=== PATIENT | male | born 1990 | race Caucasian/White ===

== ENCOUNTER 2016-09-15 12:14 | Emergency (ER) | payer OTHER ==
[~2016-09-15] VITALS: Ht 188 cm; Wt 76.2 kg
[2016-09-15 12:20] VITALS: BP 129/78
[2016-09-15] MEDS ORDERED: KEFLEX500 MG PO (13:49)
== END 2016-09-15 14:03 | disposition home or self-care (01) ==
LOC: ER 12:14
DX: S01.81XA Laceration without foreign body of other part of head, initial encounter (principal); S63.611A Unspecified sprain of left index finger, initial encounter; W18.30XA Fall on same level, unspecified, initial encounter; Y93.89 Activity, other specified; Y92.89 Other specified places as the place of occurrence of the external cause; Y99.9 Unspecified external cause status; Z88.1 Allergy status to other antibiotic agents